=== PATIENT | female | born 1965 | race Caucasian/White ===

== ENCOUNTER 2019-12-13 13:02 | Emergency (ER) | payer OTHER, SELFPAY ==
--- NOTE | ~2019-12-13 | XR_ITS ---
EXAMINATION: XR chest 2V DATE: 12/13/2019 13:48 INDICATION: Cough, possible exposure to COVID-19 TECHNIQUE: PA and lateral views of the chest are obtained. COMPARISON: 06/01/2018 FINDINGS: The lungs are free of acute opacities. There is no pleural effusion or pneumothorax. The ca rdiomediastinal silhouette is normal. There is moderate thoracic spondylosis. IMPRESSION: 1. No acute cardiopulmonary abnormality. Reviewed, dictated and finalized at location A.
[2019-12-13 13:16] VITALS: BP 142/92; PULSE 108; RESP 20; TEMP 36.4; O2SAT 98
--- NOTE | 2019-12-13 13:17 | ED.GENADULT ---
HPI - General Adult General Chief complaint: Upper Respiratory Infection Stated complaint: Fever/Chills/Vomitting/Shortness of Breath Time Seen by Provider: 12/13/19 13:54 Source: patient and RN notes reviewed Mode of arrival: ambulatory Limitations: no limitations History of Present Illness HPI narrative: This is a 54 years old female presents to the office for an evaluation of cough for a couple days with shortness of breathe. She also reported fever up to 100.3 last night. She also stated her sister just got back from [place] 16 days ago. She adamant that her sister did not have any symptoms however she did not tested for COVID19. Related Data Home Medications Medication Instructions Recorded Confirmed acetaminophen-codeine 1 tablet PO DAILY 12/13/19 12/13/19 [Tylenol-Codeine #4] alprazolam 1 mg PO HS 12/13/19 12/13/19 escitalopram oxalate 10 mg PO DAILY 12/13/19 12/13/19 lisinopril-hydrochlorothiazide 1 tablet PO DAILY 12/13/19 12/13/19 omeprazole 20 mg PO DAILY 12/13/19 12/13/19 Allergies Allergy/AdvReac Type Severity Reaction Status Date / Time doxycycline Allergy Unknown Rash Verified 12/13/19 13:30 Penicillins Allergy Unknown Rash Verified 12/13/19 13:30 Review of Systems Review of Systems: Narrative: CONSTITUTIONAL: Reports fever ENT: Denies congestion CARDIOVASCULAR: Denies chest pain, palpitation RESPIRATORY: Reports cough, dyspnea GASTROINTESTINAL: Denies abdominal pain, nausea, vomiting GENITOURINARY: Denies urinary symptoms SKIN: Denies rash MUSCULOSKELETAL: Denies acute back pain NEUROLOGIC: Denies lightheaded PMFSH Past Medical History Medical History (Updated 12/13/19 @ 14:25 by CULLEN Fine) Anxiety Heart attack HTN (hypertension) Surgical History Surgical History (Updated 12/13/19 @ 13:36 by CULLEN Fine) Hx of appendectomy Social History Social History (Updated 12/13/19 @ 13:36 by CULLEN Fine) Social History: quite 2019 Smoking status: Former smoker Comments At time of signature, I agree with nursing past medical, surgical, social and family history. There is no relevant family history pertinent to the presenting complaint. Exam Narrative: Exam Narrative: GENERAL: This is a well-nourished, well-developed patient, in no apparent distress. EYES: Sclera clear/white. Vision is grossly intact. EARS: External ears normal, auditory canals clear and without drainage, TMs normal without perforation. Hearing grossly intact. NOSE: External nose normal with no obvious nasal discharge, nares without redness, no rhinorrhea. THROAT: Mucous membranes moist, posterior pharynx clear. NECK: Neck supple, non-tender without lymphadenopathy, masses or thyromegaly. CARDIOVASCULAR: Regular rate and rhythm without murmurs, gallops, or rubs. RESPIRATORY: Diminished breath sound, tachpnea. Breath sounds equal bilaterally. No wheezes, rales, or rhonchi. GASTROINTESTINAL: Abdomen soft, non-tender, nondistended. Bowel sounds are active. No hepato-splenomegaly, or palpable masses. No guarding. SKIN: warm, intact with no suspicious lesions or rash, good texture and turgor. NEURO: awake, alert, and oriented to person, place and time. There were no obvious focal neurologic abnormalities. Steady gait Leonora Coma Scale Eye Opening: Spontaneous 4 Leonora Coma Scale Motor: Obeys Commands 6 Leonora Coma Scale Verbal: Oriented 5 Course Reevaluation(s) Reevaluation #1: Post nebulizer treatment: Patient reported feeling much better, able to breathe better. I reviewed test results with the patient. Vital Signs Vital signs: Vital Signs Temperature 97.6 F 12/13/19 13:16 Pulse Rate 108 H 12/13/19 13:16 Respiratory Rate 20 12/13/19 13:16 Blood Pressure 142/92 H 12/13/19 13:16 Pulse Oximetry 98 12/13/19 13:16 Temperature 97.6 F 12/13/19 13:16 Pulse Rate 108 H 12/13/19 13:16 Respiratory Rate 16 12/13/19 14:14 Blood Pressure 142/92 H 12/13/19 1
[2019-12-13] MEDS: ALBUTEROL SULFATE NEB 2.5 MG/3 ML INH INHALATION (13:50)
[2019-12-13] MEDS: IPRATROPIUM BR 0.02% INH SOLN 0.5 MG/2.5 ML VIAL INHALATION (13:51)
[2019-12-13 14:14] VITALS: RESP 16; O2SAT 97
== END 2019-12-13 14:37 | disposition home or self-care (01) ==
PROVIDERS: Emergency Provider Nurse Practitioner; PCP Family Medicine
DX: J20.8 Acute bronchitis due to other specified organisms (principal); Z87.891 Personal history of nicotine dependence; F41.9 Anxiety disorder, unspecified; I25.2 Old myocardial infarction; I10 Essential (primary) hypertension
CPT/HCPCS: 71046; 87804; 99213; G0463

== ENCOUNTER 2022-08-02 15:23 | Emergency (ER) | payer OTHER, SELFPAY ==
--- NOTE | ~2022-08-02 | XR_ITS ---
XR foot RT min 3V DATE: 08/02/2022 15:45 INDICATION: Dropped table on dorsum of foot. Proximal pain. TECHNIQUE: 4 views COMPARISON: None FINDINGS: There is mild plantar calcaneal enthesopathy. There may be a very small subtle dorsal cortical fracture of the anterior process of the talus. No other fracture, dislocation, periosteal reaction or bone destruction. IMPRESSION: There may be a very subtle small dorsal cortical fracture of the anterior process of the talus; no other fracture or dislocation is detected Plantar calcaneal enthesopathy Reviewed, dictated and finalized at location A. IMPRESSION: There may be a very subtle small dorsal cortical fracture of the an terior process of the talus; no other fracture or dislocation is detected Plantar calcaneal enthesopathy
[2022-08-02 15:35] VITALS: BP 147/89; PULSE 112; RESP 18; TEMP 37; O2SAT 98
--- NOTE | 2022-08-02 16:46 | ED.LOWEXIN ---
HPI - Extremity Injury (Lower) General Chief Complaint: Extremity Injury, Lower Stated Complaint: Right Foot Injury Time Seen by Provider: 08/02/22 16:46 Source: patient Mode of arrival: ambulatory Limitations: no limitations History of Present Illness HPI Narrative: 56 y/o female presented for c/o right foot pain after injury today. States she dropped a couch on her foot, with the wooden leg landing on the top of the foot. Endorses pain and bruising and swelling. States there was a small amount of bleeding which she cleaned. She applied ice and took Advil. Related Data Home Medications Medication Instructions Recorded Confirmed acetaminophen 300 mg-codeine 60 mg 1 tablet PO DAILY 12/13/19 08/02/22 tablet (Tylenol-Codeine #4) alprazolam 1 mg tablet 1 mg PO HS 12/13/19 08/02/22 escitalopram oxalate 10 mg tablet 10 mg PO DAILY 12/13/19 08/02/22 lisinopril 10 1 tablet PO DAILY 12/13/19 08/02/22 mg-hydrochlorothiazide 12.5 mg tablet metformin 500 mg tablet 500 mg BID 08/02/22 08/02/22 quetiapine 100 mg tablet 100 mg HS 08/02/22 08/02/22 Allergies Allergy/AdvReac Type Severity Reaction Status Date / Time doxycycline Allergy Unknown Rash Verified 08/02/22 15:50 Penicillins Allergy Unknown Rash Verified 08/02/22 15:50 Review of Systems Review of Systems: CONSTITUTIONAL: Denies body aches, fever, chills CARDIOVASCULAR: Denies chest pain, palpitations, or edema. RESPIRATORY: Denies cough or dyspnea. SKIN: Denies rash MUSCULOSKELETAL:per HPI NEUROLOGIC: Denies headache, numbness, tingling, or weakness. All systems reviewed & are unremarkable except as noted in HPI and below PMFSH Past Medical History Medical History Anxiety Heart attack HTN (hypertension) Surgical History Surgical History Hx of appendectomy Social History Social History Social History: quite 2019 Smoking status: Former smoker Comments At time of signature, I have reviewed and agree with nursing past medical, surgical, social and family history unless otherwise noted. Please see nursing chart for further information. There is no relevant family history pertinent to the presenting complaint Exam Narrative: GENERAL: Well-appearing, well-nourished, and in no acute distress. CHEST: Speaks in full sentences. No respiratory distress. HEART: Regular rate and rhythm. Normal and equal peripheral pulses. EXTREMITIES: Right foot has normal strength and sensation, limited range of motion to ankle due to pain at dorsal aspect of foot. Mild dorsal swelling and bruising with superficial abrasion at center. Tender to palpation. No obvious deformity; pulse palpable and equal bilaterally, skin warm, dry, pink. Capillary refill less than 3 seconds. SKIN: Warm, dry, no rash. NEURO: Alert and oriented x3. Course Course Emergency Course: Patient is aware of diagnosis, understands and agrees to treatment plan. Anticipatory guidance given. Patient agrees to follow-up as directed and is aware of reasons to seek care at the emergency department. Portions of this record may have been created with voice recognition software Level of Care: Express Care Visit Vital Signs Vital signs: Vital Signs Temperature 98.6 F 08/02/22 15:35 Pulse Rate 112 H 08/02/22 15:35 Respiratory Rate 18 08/02/22 15:35 Blood Pressure 147/89 H 08/02/22 15:35 Pulse Oximetry 98 08/02/22 15:35 Oxygen Delivery Room Air 08/02/22 15:35 Temperature 98.6 F 08/02/22 15:35 Pulse Rate 112 H 08/02/22 15:35 Respiratory Rate 18 08/02/22 15:35 Blood Pressure 147/89 H 08/02/22 15:35 Pulse Oximetry 98 08/02/22 15:35 Oxygen Delivery Room Air 08/02/22 15:35 Reviewed Procedures Orthopedic Splinting/Casting right foot: Splinting/Casting Date: 08/02/22 OCL: post
--- NOTE | 2022-08-02 17:35 | PC.NURSE ---
PT DECLINED WHEELCHAIR TO RADIOLOGY AND PT ROOM. PT TAKEN TO CAR IN WHEELCHAIR
== END 2022-08-02 17:33 | disposition home or self-care (01) ==
PROVIDERS: Emergency Provider Nurse Practitioner Family; PCP Family Medicine
DX: S92.101A Unspecified fracture of right talus, initial encounter for closed fracture (principal); I10 Essential (primary) hypertension; Z87.891 Personal history of nicotine dependence; W22.8XXA Striking against or struck by other objects, initial encounter
CPT/HCPCS: 29515; 73630; 99214; G0463